=== PATIENT | male | born 1950 | race African-American/Black ===

== ENCOUNTER 2017-06-02 09:36 | Emergency (ER) | payer MEDICARE, OTHER ==
[2017-06-02 11:01] LABS: Bilirubin Small (Negative); Blood, Urine Large (Negative); Clarity Cloudy (Clear); Glucose, Urine (Dipstick) Negative (Negative); Leukocyte Large (Negative); Nitrite Positive (Negative); Protein, Urine (Dipstick) 30 mg/dL (Neg-Trace); Specific Gravity, Urine 1.025 (1.005-1.030); Urobilinogen > or = 8.0 mg/dL (0.2-1.0); pH, Urine 5.5 (5.0-9.0)
[2017-06-02 11:12] LABS: Bacteria/HPF 3+ HPF (None Seen)
[2017-06-02] MEDS ORDERED: Azithromycin 250 MG TAB ONE (11:31)
[2017-06-02] MEDS ORDERED: Ketorolac Tromethamine 60 MG/2 ML VIAL ONE (11:32)
[2017-06-02] MEDS ORDERED: cefTRIAXone\\ROCEPHIN 1 GM VIAL ONE (11:32)
--- NOTE | 2017-06-02 20:28 | CT ---
CT ABDOMEN AND PELVIS WITHOUT CONTRAST: 06/02/2017 TECHNIQUE: A spiral CT of the abdomen and pelvis was done using no oral or IV contrast. Axial slices were acqui red and coronal reconstructions were then done. FINDINGS: The lung bases are clear. The liver, spleen, pancreas, adrenal glands, and abdominal aorta appear no rmal, within the limitations of a noncontrast scan. No stones are seen in the gallbladder. The right kidney is slightly larger than the left, with a small amount of stranding around it, but my understanding is this is the asymptomatic side. there is a vague lucent area in the mid right kidne y. This could be a cyst, but it really needs ultrasound followup after treatment to assess it better . There is a 2.8 cm rounded lucency in the left kidney, that is most likely a simple cyst. Elective ultrasound would confirm this as well. CT of the pelvis shows no pelvic masses, fluid collections, or acute inflammatory changes. There is no left lower quadrant pathology of concern or inguinal pathology. There is concentric thickening of the urinary bladder wall, which can be seen in cystitis or could be a sign of chronic outlet obstruc tion. The bowel is nondistended with no sign of obstruction or inflammatory change around it. No free air or free fluid is seen. IMPRESSION: 1. Slight stranding around the right kidney, sometimes a sign of pyelonephritis but, given this bein g the asymptomatic side, it is a little less likely. 2. Vague, lucent area in the mid right kidney. This definitely needs ultrasound followup, following treatment. 3. A 2.8 cm lucency of the left kidney, very likely a simple cyst. 4. Concentric thickening of the urinary bladder wall. Cystitis versus chronic outlet obstruction. POS: HOME
[2017-06-06 00:43] LABS: Chlamydia by PCR Not Detected (NotDetected); GC by PCR Not Detected (NotDetected)
== END 2017-06-02 12:41 | disposition home or self-care (01) ==
LOC: BURERS 09:36
DX: N45.2 Orchitis (principal); N28.1 Cyst of kidney, acquired; N39.0 Urinary tract infection, site not specified; F17.210 Nicotine dependence, cigarettes, uncomplicated
CPT/HCPCS: 74176; 81003; 81015; 87077; 87086; 87186; 87491; 87591; 96372; J0696; J1885

== ENCOUNTER 2019-11-01 08:16 | Emergency (ER) | payer MEDICARE | END 2019-11-01 08:40 | disposition home or self-care (01) | LOC: BURERS 08:16 | DX: I10 Essential (primary) hypertension (principal); F17.210 Nicotine dependence, cigarettes, uncomplicated; Z79.899 Other long term (current) drug therapy | CPT/HCPCS: 99281 ==